=== PATIENT | male | born 1940 | race Caucasian/White ===

== ENCOUNTER 2017-06-17 07:50 | Day surgery (SDC) | payer BC ==
[~2017-06-17] VITALS: Ht 177.8 cm; Wt 106.0 kg
[~2017-06-17 07:50] MED LIST: ALLOPURINOL100 MG PO; CARDURA1 M1 PO; CARVEDILOL25 MG PO; IMODIUM A-D2 M2 PO; LASIX40 MG PO; OLMESARTAN MEDO40 MG PO; POTASSIUM CHLO20 ME1 PO; TURMERIC 500 M1 EACH PO
[2017-06-17 11:18] LABS: BASE EXCESS 0.5 mEq/L (-3 to +3); METHEMOGLOBIN 0.9 % (0-1.5); PCO2 50 mm Hg (35-45); pH 7.34 (7.35-7.45)
[2017-06-17 11:21] LABS: BASE EXCESS -0.6 mEq/L (-3 to +3); BICARBONATE 24.9 mEq/L (22-26); CARBOXY HGB 2.9 % (0-5); METHEMOGLOBIN 1.6 % (0-1.5); PCO2 43 mm Hg (35-45); PO2 34 mm Hg (80-100); PO2 79 mm Hg (80-100); SITE CATH. LAB SAMP.; pH 7.37 (7.35-7.45)
[2017-06-17 11:22] LABS: COMMENTS - BLOOD GASES +C PULM. ART.; SITE CATH.LAB AO SAMP.
== END 2017-06-17 17:44 | disposition home or self-care (01) ==
LOC: CATH 07:50
PROVIDERS: Internal Medicine Cardiovascular Disease
DX: I27.20 Pulmonary hypertension, unspecified (principal); I42.9 Cardiomyopathy, unspecified; I10 Essential (primary) hypertension; E78.5 Hyperlipidemia, unspecified; I51.9 Heart disease, unspecified; N28.9 Disorder of kidney and ureter, unspecified
CPT/HCPCS: 36600; 82803; 93005; C1760; C1769; C1887; C1894; J0360; J1644; J2250; J3010; J7040